=== PATIENT | male | born 2000 | race Caucasian/White ===

== ENCOUNTER 2019-07-14 19:44 | Emergency (ER) | payer BC, MEDICAID, OTHER ==
[~2019-07-14] VITALS: Ht 182.8 cm; Wt 78.2 kg
[2019-07-14] MEDS ORDERED: SULF-222 PO ×2 (20:09→20:37)
--- NOTE | 2019-07-14 20:09 | ED Upper Extremity ---
General Chief Complaint: Laceration Stated Complaint: LEFT HAND PINKIE CUT TO BONE History of Present Illness Date Seen by Provider: Jul 14, 2019 Time Seen by Provider: 19:50 Initial Comments 19-year-old male presents with a laceration to the left fifth finger. He was using a box knife at work to kite labels off of cans. He is right-hand dominant. He denies any other injuries. He is unsure of his last tetanus booster. Onset: just prior to arrival Pain/Injury Location: left 5th finger Method of Injury: incised Allergies and Home Medications Allergies Coded Allergies: Penicillins (Verified Allergy, Unknown, 07/14/19) Home Medications Sulfamethoxazole/Trimethoprim 1 Each Tablet, 1 EACH PO BID Prescribed by: FLORIAN JADE on 07/14/192036 Patient Home Medication List Home Medication List Reviewed: Yes Review of Systems Constitutional: no symptoms reported, see HPI Skin: see HPI, other (laceration left fifth finger.) All Other Systems Reviewed Negative Unless Noted: Yes Past Hetebrm-Kfaexa-Ypkdnj Hx Past Med/Social Hx: Reviewed Nursing Past Med/Soc Hx Patient Social History Recent Foreign Travel: No Contact w/Someone Who Travel: No Physical Exam Vital Signs Vital Signs - First Documented 07/14/19 19:50 Temp 36.8 Pulse 79 Resp 17 B/P (MAP) 140/80 (100) Pulse Ox 99 O2 Delivery Room Air Capillary Refill : Height, Weight, BMI Height: '" Weight: lbs. oz. kg; BMI Method: General Appearance: WD/WN, no apparent distress Cardiovascular: normal peripheral pulses, regular rate, rhythm Respiratory: chest non-tender, lungs clear, normal breath sounds Hand: Left, laceration (1.5 cm laceration to ulnar and volar portion of proximal phalynx. Full resisted flex and ext at MCP, PIP and DIP joints. Cap refil < 2 sec. ) Neurologic/Psychiatric: no motor/sensory deficits, alert, normal mood/affect, oriented x 3 Procedures/Interventions Wound Location: Upper Extremities (left 5th finger, over MCP on ulnar side) Wound Length (cm): 1.4 Wound's Depth, Shape: superficial Wound Explored: clean Irrigated w/ Saline (ccs): 500 Betadine Prep?: Yes Anesthesia: 1% Lidocaine Volume Anesthetic (ccs): 4 Suture: Ethlion Suture Size: 5-0 Number of Sutures: 3 Sterile Dressing Applied?: Yes Progress Wound well approximated, no active bleeding. Bulky sterile dressing applied. Patient tolerated procedure well. Progress/Results/Core Measures Results/Orders My Orders Orders - FLORIAN JADE Finger(S) (07/14/19 19:56) Dipht,Pertuss(Acell),Tet Adult (Boostrix (07/14/19 20:15) Lidocaine 1% Inj 20 Ml (Xylocaine 1% Inj (07/14/19 20:15) Medications Given in ED Current Medications Medications Dose Ordered Sig/Leticia Route Start Time Stop Time Status Last Admin Dose Admin Diphtheria/ Tetanus/Acell Pertussis 0.5 ml ONCE ONCE IM 07/14/19 20:15 07/14/19 20:16 DC 07/14/19 20:17 0.5 ML Lidocaine HCl 20 ml ONCE ONCE INJ 07/14/19 20:15 07/14/19 20:16 DC 07/14/19 20:17 1 ML Vital Signs/I&O 07/14/19 07/14/19 19:50 20:47 Temp 36.8 36.8 Pulse 79 70 Resp 17 17 B/P (MAP) 140/80 (100) 124/88 (100) Pulse Ox 99 99 O2 Delivery Room Air Room Air Departure Impression Primary Impression: Laceration of left little finger w/o foreign body w/o damage to nail Qualified Codes: S61.217A - Laceration without foreign body of left little finger without damage to nail, initial encounter Disposition: 01 HOME, SELF-CARE Condition: Improved Departure-Patient Inst. Decision time for Depature: 20:35 Referrals: NO,LOCAL PHYSICIAN (PCP/Family) Primary Care Physician Patient Instructions: Laceration Repair With Stitches (DC) Add. Discharge Instructions: Keep wound clean and dry. Leave dressing in place for 24 hours, then remove and may shower. Apply peroxide to wound after showering and cover with a Band-Aid. Do not see an emergent the left fifth finger in standing water: Sink, hot tub, bathtub, or pool. Wear gloves at work. Return in 7-10 days for suture removal. Take antibiotic as prescribed. You may alternate between Tylenol 650 mg and ibuprofen 600 mg every 4 hours for pain. Ice to left fifth finger 20 minutes every 2 hours while awake as needed for pain or throbbing. Return to the emergency department for new, urgent health care problems or if wound becomes reddened, discolored or foul smelling drainage, increased pain or inflammation. All discharge instructions reviewed with patient and/or family. Voiced understanding. Scripts Sulfamethoxazole/Trimethoprim (Sulfamethoxazole-Tmp Ds Tablet) 1 Each Tablet 1 EACH PO BID, #10 TAB 0 Refills Prov: FLORIAN JADE 07/14/19 FLORIAN JADE Jul 14, 2019 20:09 POS
[2019-07-14] MEDS ORDERED: LIDOCAINE 1% INJ 20 ML 20 ML VIAL INJ ONE (20:15)
[2019-07-14] MEDS ORDERED: TETANUS,DIPTH,PERTUSS P/F (BOOSTRIX) 0.5 ML VIAL IM ONE (20:15)
--- NOTE | 2019-07-14 20:31 | NUR ---
3 SUTURES PLACED TO 1.5 CM LAC ON LT HAND 5TH DIGIT.
--- NOTE | 2019-07-14 20:31 | Diagnostic Imaging Report ---
CLINICAL HISTORY: Pinky finger laceration. COMPARISON: None TECHNIQUE: 3 views of the left fingers. FINDINGS: There is no acute fracture or dislocation of the left fingers. Alignment is anatomic. Soft tissue laceration is seen in the left 5th finger. IMPRESSION: 1. No acute fracture or dislocation in the left hand. 2. Soft tissue laceration in the left finger. Dictated by: Dictated on workstation # [id number]
[2019-07-14 20:47] VITALS: BP 124/88
== END 2019-07-14 20:47 | disposition home or self-care (01) ==
LOC: EDUNIT# 19:44 → ER 19:47
DX: S61.217A Laceration without foreign body of left little finger without damage to nail, initial encounter (principal); Z23 Encounter for immunization; Z88.0 Allergy status to penicillin; W26.0XXA Contact with knife, initial encounter; Y92.59 Other trade areas as the place of occurrence of the external cause
CPT/HCPCS: 73140; 90715